=== PATIENT | female | born 1965 | race Asian ===

== ENCOUNTER 2018-12-10 17:15 | Emergency (ER) | payer BC ==
[2018-12-10 18:08] LABS: ABS Basophils 0.1 10^3/ul (0-0.2); ABS Eosinophils 0.1 10^3/ul (0-0.6); ABS Lymphocytes 1.6 10^3/ul (1.0-4.8); ABS Monocytes 0.3 10^3/ul (0-0.8); ABS Neutrophils 4.4 10^3/ul (1.5-7.7); ABS Nucleated RBC 0 10^3/ul; Eosinophil % 2.2 %; Hematocrit 39 % (33-41); Hemoglobin 13.2 g/dL (12.0-16.0); Lymphocyte % 24.5 %; Mean Corpuscular HGB Conc 34 g/dL (31-36); Mean Corpuscular Hemoglobin 30 pg (27-31); Mean Corpuscular Volume 89 fL (80-97); Mean Platelet Volume 9.2 fL (7.4-10.4); Nucleated Red Blood Cells % 0.1; Platelet Count 270 10^3/uL (150-450); Red Blood Count 4.38 10^6 /uL (3.70-4.87); Red Cell Distribution Width 13 % (10.5-15); White Blood Count 6.5 10^3/uL (3.5-10.8)
[2018-12-10 18:23] LABS: INR 0.93 (0.77-1.02)
[2018-12-10] MEDS ORDERED: Meclizine TAB* 12.5 MG PO ONE (18:26)
[2018-12-10] MEDS ORDERED: NS 0.9% 1000 ML** 1,000 ML IV ONE (18:27)
[2018-12-10 18:28] LABS: Troponin I 0.01 ng/mL (<0.04)
--- NOTE | 2018-12-10 18:30 | ED ---
HPI Chest Pain - HPI Summary HPI Summary: 53 year old female presents with chest pain and dizziness today. She states that it is located in the center of her chest. She also states that she has been dizzy. Dizziness is worse with movement of her head. States has sensation of the room is spinning. She did not pass out. No syncope. She admits to occasional shortness breath. She also states she felt nauseous at one point. No vomiting. No abdominal pain. Nothing makes it better or worse. She states that the chest pain has dissipated and she just has the dizziness now. She has no medical history. Does have a family history of cardiac disease. Was a smoker. denies any pain is swelling in calf muscles. No recent increase in weight. - History of Current Complaint Chief Complaint: EDChestPainROMI Time Seen by Provider: 12/10/18 18:20 Hx Last Menstrual Period: 12/09/2018 Pain Intensity: 6 - Allergy/Home Medications Allergies/Adverse Reactions: Allergies Allergy/AdvReac Type Severity Reaction Status Date / Time No Known Allergies Allergy Verified 04/21/15 10:32 PMH/Surg Hx/FS Hx/Imm Hx Endocrine/Hematology History: Denies: Hx Anticoagulant Therapy Cardiovascular History: Reports: Hx Hypertension - Surgical History Surgery Procedure, Year, and Place: c-sections x 3 Infectious Disease History: No Infectious Disease History: Denies: History Other Infectious Disease, Traveled Outside the [place] in Last 30 Days - Family History Known Family History: Positive: Cardiac Disease, Hypertension - Social History Alcohol Use: None Substance Use Type: Reports: None Smoking Status (MU): Former Smoker Have You Smoked in the Last Year: No Review of Systems Negative: Fever Positive: Chest Pain Positive: Shortness Of Breath. Negative: Cough Neurological: Other - dizziness All Other Systems Reviewed And Are Negative: Yes Physical Exam Triage Information Reviewed: Yes Vital Signs On Initial Exam: Initial Vitals Temp Pulse Resp BP Pulse Ox 99.5 F 68 18 181/75 99 12/10/18 17:21 12/10/18 17:21 12/10/18 17:21 12/10/18 17:21 12/10/18 17:21 Vital Signs Reviewed: Yes Appearance: Positive: Well-Appearing Skin: Positive: Warm, Dry Head/Face: Positive: Normal Head/Face Inspection Eyes: Positive: Normal, Conjunctiva Clear ENT: Positive: Pharynx normal Respiratory/Lung Sounds: Positive: Clear to Auscultation, Breath Sounds Present , Other - reproducible chest pain Cardiovascular: Positive: Normal, RRR Abdomen Description: Positive: Nontender, Soft Bowel Sounds: Positive: Present Musculoskeletal: Positive: Normal Neurological: Positive: Sensory/Motor Intact, Alert, Oriented to Person Place, Time, CN Intact II-III, [place] Test - positive Psychiatric: Positive: Normal Diagnostics - Vital Signs Vital Signs Temp Pulse Resp BP Pulse Ox 12/10/18 17:21 99.5 F 68 18 181/75 99 - Laboratory Lab Results: Lab Results 12/10/18 12/10/18 12/10/18 Range/Units 17:58 17:58 17:58 WBC 6.5 (3.5-10.8) 10^3/uL RBC 4.38 (3.70-4.87) 10^6 /uL Hgb 13.2 (12.0-16.0) g/dL Hct 39 (33-41) % MCV 89 (80-97) fL MCH 30 (27-31) pg MCHC 34 (31-36) g/dL RDW 13 (10.5-15) % Plt Count 270 (150-450) 10^3/uL MPV 9.2 (7.4-10.4) fL Neut % (Auto) 68.5 % Lymph % (Auto) 24.5 % Nance % (Auto) 4.0 % Eos % (Auto) 2.2 % Baso % (Auto) 0.8 % Absolute Neuts (auto) 4.4 (1.5-7.7) 10^3/ul Absolute Lymphs (auto) 1.6 (1.0-4.8) 10^3/ul Absolute Monos (auto) 0.3 (0-0.8) 10^3/ul Absolute Eos (auto) 0.1 (0-0.6) 10^3/ul Absolute Basos (auto) 0.1 (0-0.2) 10^3/ul Absolute Nucleated RBC 0 10^3/ul Nucleated RBC % 0.1 INR (Anticoag Therapy) 0.93 (0.77-1.02) D-Dimer, Quantitative < 200 (Less Than 230) ng/mL Sodium Pending Potassium Pending Chloride Pending Carbon Dioxide Pending Anion Gap Pending BUN Pending Creatinine Pending Est GFR ( Amer) Pending Est GFR (Non-Af Amer) Pending BUN/Creatinine Ratio Pending Glucose Pending Lactic Acid (0.5-2.0) mmol/L Calcium Pending Total Bilirubin Pending AST Pending ALT Pending Alkaline Phosphatase Pending Troponin I 0.01 (<0.04) ng/mL Total Protein Pending Albumin Pending Globulin Pending Albumin/Globulin Ratio Pending 12/10/18 Range/Units 17:58 WBC (3.5-10.8) 10^3/uL RBC (3.70-4.87) 10^6 /uL Hgb (12.0-16.0) g/dL Hct (33-41) % MCV (80-97) fL MCH (27-31) pg MCHC (31-36) g/dL RDW (10.5-15) % Plt Count (150-450) 10^3/uL MPV (7.4-10.4) fL Neut % (Auto) % Lymph % (Auto) % Nance % (Auto) % Eos % (Auto) % Baso % (Auto) % Absolute Neuts (auto) (1.5-7.7) 10^3/ul Absolute Lymphs (auto) (1.0-4.8) 10^3/ul Absolute Monos (auto) (0-0.8) 10^3/ul Absolute Eos (auto) (0-0.6) 10^3/ul Absolute Basos (auto) (0-0.2) 10^3/ul Absolute Nucleated RBC 10^3/ul Nucleated RBC % INR (Anticoag Therapy) (0.77-1.02) D-Dimer, Quantitative (Less Than 230) ng/mL Sodium Potassium Chloride Carbon Dioxide Anion Gap BUN Creatinine Est GFR ( Amer) Est GFR (Non-Af Amer) BUN/Creatinine Ratio Glucose Lactic Acid 1.0 (0.5-2.0) mmol/L Calcium Total Bilirubin AST ALT Alkaline Phosphatase Troponin I (<0.04) ng/mL Total Protein Albumin Globulin Albumin/Globulin Ratio Result Diagrams: 12/10/18 17:58 12/10/18 17:58 Lab Statement: Any lab studies that have been ordered have been reviewed, and results considered in the medical decision making process. - CT chest CT Interpretation Completed By: ED Physician Summary of CT Findings: no active disease - EKG No standard instances Cardiac Rate: NL EKG Rhythm: Sinus Rhythm EKG Comparison: No Significant Change Summary of EKG Findings: sinus rhythm, PAC Re-Evaluation - Re-Evaluation First Eval Re-Evaluation Time: 19:37 Change: Improved Comment: chest pain resolved, less dizzy Second Eval Re-Evaluation Time: 21:20 Change: Unchanged Comment: no symptoms still Chest Pain Course/Dx - Course Course Of Treatment: 53 year old female presents with chest pain and dizziness today. She states that it is located in the center of her chest. She also states that she has been dizzy. Dizziness is worse with movement of her head. States has sensation of the room is spinning. She did not pass out. No syncope. She admits to occasional shortness breath. She also states she felt nauseous at one point. No vomiting. No abdominal pain. Nothing makes it better or worse. She states that the chest pain has dissipated and she just has the dizziness now. She has no medical history. Does have a family history of cardiac disease. Was a smoker. denies any pain is swelling in calf muscles. No recent increase in weight. on exam reproducible chest pain. nystagmus noted. pos [id number]. wbc normal. electrolytes normal. troponin zero x2. d-dimer neg. ekg shows sinus rhythm with pac. gave meclizine and fluids and feeling better. will discharge with meclizine. told follow up with primary. patient understand and agrees with plan. - Chest Pain Differential Diagnosis/HQI/PQRI: Angina, Chest Wall - Diagnoses Provider Diagnoses: Chest pain, Dizziness Discharge - Sign-Out/Discharge Documenting (check all that apply): Patient Departure Patient Received Moderate/Deep Sedation with Procedure: No - Discharge Plan Condition: Good Disposition: HOME Prescriptions: Meclizine TAB* [Antivert 12.5 TAB*] 25 mg PO TID #12 tab Patient Education Materials: Chest Pain (ED), Vertigo (ED) Referrals: Daljit Roman MD [Primary Care Provider] - Additional Instructions: Follow up with primary within 3 days Take meclizine up to 3 tablets a day for vertigo Drink plenty of fluids Return to ED if develop any new or worsening symptoms - Billing Disposition and Condition Condition: GOOD Disposition: Home
[2018-12-10 18:31] LABS: Albumin 4.2 g/dL (3.2-5.2); Albumin/Globulin Ratio 1.4 (1-3); BUN/Creatinine Ratio 16.9 (8-20); Calcium 9.4 mg/dL (8.6-10.3); EGFR African American 115.4 (>60); EGFR Non-African American 95.3 (>60); Potassium 3.6 mmol/L (3.5-5.0); Total Bilirubin 0.3 mg/dL (0.2-1.0); Total Protein 7.2 g/dL (6.4-8.9)
[2018-12-10 21:48] VITALS: BP 133/71
== END 2018-12-10 21:52 | disposition home or self-care (01) ==
LOC: ED 17:15
DX: R07.89 Other chest pain (principal); R42 Dizziness and giddiness; R06.02 Shortness of breath; R11.0 Nausea; I10 Essential (primary) hypertension; Z82.49 Family history of ischemic heart disease and other diseases of the circulatory system; Z87.891 Personal history of nicotine dependence
CPT/HCPCS: 36415; 71045; 80053; 83605; 83880; 84484; 85025; 85379; 85610; 93005; 96360; 96361; 99283; A9270-GY